=== PATIENT | male | born 1945 | race Caucasian/White ===

== ENCOUNTER 2018-04-06 19:26 | Emergency (ER) | payer MEDICARE ==
[~2018-04-06] VITALS: Ht 170.2 cm; Wt 66.2 kg
[2018-04-06 20:00] VITALS: BP 126/75
[2018-04-06] MEDS ORDERED: LIDOCAINE 1%-EPI 1:100,000 20 ML VIAL ONE (20:25)
--- NOTE | 2018-04-06 20:59 | NUR ---
Patient discharged to home in stable condition. Written and verbal after care instructions given. Patient verbalizes understanding of instruction.pt ambulatory with a steady gait
== END 2018-04-06 21:02 | disposition home or self-care (01) ==
LOC: ER 19:34
DX: S01.81XA Laceration without foreign body of other part of head, initial encounter (principal); W01.0XXA Fall on same level from slipping, tripping and stumbling without subsequent striking against object, initial encounter; W14.XXXA Fall from tree, initial encounter; Y93.89 Activity, other specified; Y92.89 Other specified places as the place of occurrence of the external cause; Y99.8 Other external cause status
CPT/HCPCS: A4606; A6402; J3490; Z7610

== ENCOUNTER 2018-04-22 08:31 | Emergency (ER) | payer MEDICARE, BC ==
[~2018-04-22] VITALS: Ht 170.2 cm; Wt 65.8 kg
[2018-04-22 08:37] VITALS: BP 138/73
== END 2018-04-22 09:14 | disposition home or self-care (01) ==
LOC: ER 08:37
DX: S01.81XD Laceration without foreign body of other part of head, subsequent encounter (principal); R59.1 Generalized enlarged lymph nodes; X58.XXXD Exposure to other specified factors, subsequent encounter
CPT/HCPCS: 99281; A4606; Z7502